=== PATIENT | female | born 1990 | race American Indian/Alaskan Native ===

== ENCOUNTER 2019-08-03 19:38 | Emergency (ER) | payer SELFPAY ==
--- NOTE | 2019-08-03 20:39 | Event Note ---
ED Screening Note Date of service: 08/03/19 Time: 20:37 ED Screening Note: Pt complains of hematemesis and epigastric pain x 3 am states started after taking cornelius's cold medication states pain is burning vomiting BRB denies hx of GI bleed This initial assessment/diagnostic orders/clinical plan/treatment(s) is/are subject to change based on patients health status, clinical progression and re- assessment by fellow clinical providers in the ED. Further treatment and workup at subsequent clinical providers discretion. Patient/guardian urged not to elope from the ED as their condition may be serious if not clinically assessed and managed. Initial orders include: CT labs
[2019-08-03] MEDS ORDERED: PANTOPRAZOLE 40 MG INJ IV ONE (20:40)
[2019-08-03 21:36] LABS: Bilirubin,Urine NEG (Negative); Blood,Urine SM (Negative); Color,Urine Yellow (Yellow); Mucus,Urine 3+ /HPF; Urobilinogen,Urine < 2.0 mg/dL (<2.0)
[2019-08-03 21:43] LABS: Basophils % (Auto) 0.5 % (0.0-1.8); Hematocrit 41.5 % (30.3-42.9); Lymphocytes # (Auto) 0.7 K/mm3 (1.2-5.4); Mean Corpuscular HGB Conc 34 % (30-34); Mean Corpuscular Volume 97 fl (79-97); Monocytes # (Auto) 0.5 K/mm3 (0.0-0.8); Monocytes % (Auto) 10.5 % (0.0-7.3); Platelet Count 244 K/mm3 (140-440); Red Blood Count 4.26 M/mm3 (3.65-5.03); Red Cell Distribution Width 15.8 % (13.2-15.2)
[2019-08-03 21:50] LABS: INR 1.02 (0.87-1.13)
[2019-08-03 21:51] LABS: Partial Thromboplastin Time 27.5 Sec. (24.2-36.6)
[2019-08-03 22:06] LABS: Alanine Aminotransferase 18 units/L (7-56); Albumin 4.2 g/dL (3.9-5); BUN/Creatinine Ratio 10; Blood Urea Nitrogen 6 mg/dL (7-17); Calcium 9.1 mg/dL (8.4-10.2); Hemolysis Index 12
[2019-08-03] MEDS ORDERED: ONDANSETRON 4 MG/2 ML INJ IV ONE (23:34)
[2019-08-03] MEDS ORDERED: D5W/0.9% NACL 1,000 ML IV SCH (23:45)
[2019-08-03] MEDS ORDERED: MORPHINE 4 MG/1 ML INJ IV ONE (23:45)
--- NOTE | 2019-08-03 23:49 | Emergency Department Report ---
ED N/V/D HPI - General Chief complaint: Abdominal Pain Stated complaint: ABD PAIN/EMESIS Time Seen by Provider: 08/03/19 20:34 Source: patient, EMS Mode of arrival: Ambulatory Limitations: No Limitations - History of Present Illness Initial comments: 29 year old female the past medical history liposuction and eating disorder/bulimia presents to the hospital complaints of hematemesis and burning abdominal pain since 3 AM yesterday. Patient has had a gross bright will blood vomiting episodes since 3 AM followed by multiple coffee ground emesis episodes. She complains midline burning epigastric pain radiating midline down to the suprapubic area rated moderate to severe in intensity. Pain worsened palpation and movement. Patient also having intermittent cramping abdominal pain. Patient received Protonix IV in triage reports improvement in this pain. Patient feels dry requesting by mouth fluids. She states she feels her bulimia has improved and she is down to vomiting once every other day and when she feels like she is fat. She has never received any psychiatric treatment for bulimia. - Related Data Previous Rx's Medication Instructions Recorded Last Taken Type Cyclobenzaprine [Flexeril] 10 mg PO QHS PRN #20 tablet 09/12/18 Unknown Rx Ibuprofen [Motrin] 800 mg PO Q8HR #30 tablet 09/12/18 Unknown Rx Ondansetron [Zofran Odt] 4 mg PO Q8HR PRN #20 tab.rapdis 08/04/19 Unknown Rx Pantoprazole [Protonix] 40 mg PO QDAY #30 tablet 08/04/19 Unknown Rx traMADoL [Ultram 50 MG tab] 50 mg PO Q6HR PRN #15 tablet 08/04/19 Unknown Rx Allergies Allergy/AdvReac Type Severity Reaction Status Date / Time No Known Allergies Allergy Verified 08/03/19 23:36 ED Review of Systems ROS: Stated complaint: ABD PAIN/EMESIS Other details as noted in HPI Comment: All other systems reviewed and negative ED Past Medical Hx - Past Medical History Previous Medical History?: No Additional medical history: Eating disorder/ bulimia - Surgical History Past Surgical History?: Yes Additional Surgical History: lipsuction - Social History Smoking Status: Never Smoker Substance Use Type: None - Medications Home Medications: Home Medications Medication Instructions Recorded Confirmed Last Taken Type Cyclobenzaprine [Flexeril] 10 mg PO QHS PRN #20 tablet 09/12/18 Unknown Rx Ibuprofen [Motrin] 800 mg PO Q8HR #30 tablet 09/12/18 Unknown Rx Ondansetron [Zofran Odt] 4 mg PO Q8HR PRN #20 tab.rapdis 08/04/19 Unknown Rx Pantoprazole [Protonix] 40 mg PO QDAY #30 tablet 08/04/19 Unknown Rx traMADoL [Ultram 50 MG tab] 50 mg PO Q6HR PRN #15 tablet 08/04/19 Unknown Rx ED Physical Exam - General Limitations: No Limitations - Other Other exam information: General: No acute distress Head: Atraumatic Eyes: normal appearance ENT:dry mucous membranes Neck: Normal appearance, no midline tenderness Chest: Clear to auscultation bilaterally CV: Regular rate and rhythm Abdomen: Soft, normal bowel sounds, epigastric and right upper quadrant tenderness, nondistended, no rebound or guarding Rectal: no gross stool on rectal exam, guaic neg, no gross blood Back: Normal inspection Extremity: Normal inspection, full range of motion Neuro: Alert O x 3, no facial asymmetry, speech clear, no gross motor sensory deficit Psych: Appropriate behavior Skin: No rash ED Course Vital Signs 08/03/19 08/03/19 08/04/19 19:50 20:34 00:06 Temperature 99.1 F 99.1 F Pulse Rate 79 81 Respiratory 18 18 Rate Blood Pressure 108/72 108/72 O2 Sat by Pulse 96 95 99 Oximetry 08/04/19 08/04/19 08/04/19 00:15 00:30 00:45 Temperature Pulse Rate Respiratory Rate Blood Pressure 92/52 102/45 105/58 O2 Sat by Pulse 98 99 99 Oximetry - Consultations Consultation #1: 08/04/19 00:52 case d/w Dr guaman, gi, f/u advised ED Medical Decision Making - Lab Data Result diagrams: 08/03/19 21:19 08/03/19 21:19 Lab Results 08/03/19 08/03/19 08/03/19 Range/Units 21:16 21:19 21:19 WBC 4.6 (4.5-11.0) K/mm3 RBC 4.26 (3.65-5.03) M/mm3 Hgb 14.0 (10.1-14.3) gm/dl Hct 41.5 (30.3-42.9) % MCV 97 (79-97) fl MCH 33 H (28-32) pg MCHC 34 (30-34) % RDW 15.8 H (13.2-15.2) % Plt Count 244 (140-440) K/mm3 Lymph % (Auto) 15.0 (13.4-35.0) % [place] % (Auto) 10.5 H (0.0-7.3) % Eos % (Auto) 0.0 (0.0-4.3) % Baso % (Auto) 0.5 (0.0-1.8) % Lymph # 0.7 L (1.2-5.4) K/mm3 [place] # 0.5 (0.0-0.8) K/mm3 Eos # 0.0 (0.0-0.4) K/mm3 Baso # 0.0 (0.0-0.1) K/mm3 Seg Neutrophils % 74.0 H (40.0-70.0) % Seg Neutrophils # 3.4 (1.8-7.7) K/mm3 PT (12.2-14.9) Sec. INR (0.87-1.13) APTT (24.2-36.6) Sec. Sodium 141 (137-145) mmol/L Potassium 3.4 L (3.6-5.0) mmol/L Chloride 105.0 (98-107) mmol/L Carbon Dioxide 20 L (22-30) mmol/L Anion Gap 19 mmol/L BUN 6 L (7-17) mg/dL Creatinine 0.6 L (0.7-1.2) mg/dL Estimated GFR > 60 ml/min BUN/Creatinine Ratio 10 % Glucose 101 H (65-100) mg/dL Calcium 9.1 (8.4-10.2) mg/dL Total Bilirubin 0.20 (0.1-1.2) mg/dL AST 25 (5-40) units/L ALT 18 (7-56) units/L Alkaline Phosphatase 58 (35-129) units/L Total Protein 7.8 (6.3-8.2) g/dL Albumin 4.2 (3.9-5) g/dL Albumin/Globulin Ratio 1.2 % Lipase 32 (13-60) units/L HCG, Quant (0-4) mIU/mL Urine Color Yellow (Yellow) Urine Turbidity Slightly-cloudy (Clear) Urine pH 6.0 (5.0-7.0) Ur Specific [place] 1.030 (1.003-1.030) Urine Protein 100 mg/dl (Negative) mg/dL Urine Glucose (UA) Neg (Negative) mg/dL Urine Ketones 80 (Negative) mg/dL Urine Blood Sm (Negative) Urine Nitrite Neg (Negative) Urine Bilirubin Neg (Negative) Urine Urobilinogen < 2.0 (<2.0) mg/dL Ur Leukocyte Esterase Neg (Negative) Urine WBC (Auto) 1.0 (0.0-6.0) /HPF Urine RBC (Auto) 18.0 (0.0-6.0) /HPF U Epithel Cells (Auto) 14.0 H (0-13.0) /HPF Urine Mucus 3+ /HPF 08/03/19 08/03/19 Range/Units 21:19 21:19 WBC (4.5-11.0) K/mm3 RBC (3.65-5.03) M/mm3 Hgb (10.1-14.3) gm/dl Hct (30.3-42.9) % MCV (79-97) fl MCH (28-32) pg MCHC (30-34) % RDW (13.2-15.2) % Plt Count (140-440) K/mm3 Lymph % (Auto) (13.4-35.0) % [place] % (Auto) (0.0-7.3) % Eos % (Auto) (0.0-4.3) % Baso % (Auto) (0.0-1.8) % Lymph # (1.2-5.4) K/mm3 [place] # (0.0-0.8) K/mm3 Eos # (0.0-0.4) K/mm3 Baso # (0.0-0.1) K/mm3 Seg Neutrophils % (40.0-70.0) % Seg Neutrophils # (1.8-7.7) K/mm3 PT 13.5 (12.2-14.9) Sec. INR 1.02 (0.87-1.13) APTT 27.5 (24.2-36.6) Sec. Sodium (137-145) mmol/L Potassium (3.6-5.0) mmol/L Chloride (98-107) mmol/L Carbon Dioxide (22-30) mmol/L Anion Gap mmol/L BUN (7-17) mg/dL Creatinine (0.7-1.2) mg/dL Estimated GFR ml/min BUN/Creatinine Ratio % Glucose (65-100) mg/dL Calcium (8.4-10.2) mg/dL Total Bilirubin (0.1-1.2) mg/dL AST (5-40) units/L ALT (7-56) units/L Alkaline Phosphatase (35-129) units/L Total Protein (6.3-8.2) g/dL Albumin (3.9-5) g/dL Albumin/Globulin Ratio % Lipase (13-60) units/L HCG, Quant < 2 (0-4) mIU/mL Urine Color (Yellow) Urine Turbidity (Clear) Urine pH (5.0-7.0) Ur Specific [place] (1.003-1.030) Urine Protein (Negative) mg/dL Urine Glucose (UA) (Negative) mg/dL Urine Ketones (Negative) mg/dL Urine Blood (Negative) Urine Nitrite (Negative) Urine Bilirubin (Negative) Urine Urobilinogen (<2.0) mg/dL Ur Leukocyte Esterase (Negative) Urine WBC (Auto) (0.0-6.0) /HPF Urine RBC (Auto) (0.0-6.0) /HPF U Epithel Cells (Auto) (0-13.0) /HPF Urine Mucus /HPF - Radiology Data Radiology results: report reviewed CT ABDOMEN AND PELVIS WITH IV CONTRAST INDICATION: Generalized abdominal pain. Epigastric pain. TECHNIQUE: Following the administration of intravenous contrast, multiple axial CT images of the abdomen and pelvis were acquired. Sagittal and coronal reformats were obtained. All CT performed at this facility utilize dose reduction techniques including automated exposure control, iterative reconstruction and weight based dosing when appropriate to reduce patient radiation dose to as low as reasonably achievable. COMPARISON: None FINDINGS: Limited imaging of the bilateral lung bases demonstrates no evidence of acute ab normality. Abdomen: The liver, gallbladder, spleen, pancreas, bilateral adrenal glands and bilateral kidneys show no evidence of acute abnormality. There is questioned possible mild wall thickening of the proximal small bowel. There is no evidence of bowel obstruction. No free air is identified. Pelvis: Evaluation through the pelvis is somewhat limited secondary to the paucity of abdominal fat. The urinary bladder appears normal. There is a trace amount of endometrial fluid. There is a left adnexal cyst measuring 4.8 x 5.8 cm. There is a trace amount of free pelvic fluid. Bones and Soft Tissues: Evaluation of bony structures demonstrates no evidence of destructive bony lesion. Evaluation of soft tissue structures demonstrates innumerable well- circumscribed low-density lesions throughout the gluteal soft tissues. This is nonspecific but may be secondary to previous infection or medication injection. IMPRESSION: 1. Possible mild wall thickening of the proximal small bowel. In a patient with epigastric pain this could suggest enteritis. Please correlate with patient's clinical circu mstances. 2. Left adnexal cyst. - Medical Decision Making pt feeling better, tolerating po no signs of active bleeding h/h and vitals normal case d/w GI f/u advised - Differential Diagnosis Mallery Gatica, GERD, gastroenteritis, pancreatitis, biliary colic Critical Care Time: No Critical care attestation.: If time is entered above; I have spent that time in minutes in the direct care of this critically ill patient, excluding procedure time. ED Disposition Clinical Impression: Hematemesis, Bulimia, GERD (gastroesophageal reflux disease) Disposition: - TO HOME OR SELFCARE Is pt being admited?: No Does the pt Need Aspirin: No Condition: Stable Instructions: Acute Nausea and Vomiting (ED), Gastrointestinal Bleeding (ED) Additional Instructions: Take the medication as prescribed. Follow-up with your doctor or doctor/clinic provided. Return if symptoms worsen as indicated by your discharge instructions. Prescriptions: Pantoprazole [Protonix] 40 mg PO QDAY #30 tablet traMADoL [Ultram 50 MG tab] 50 mg PO Q6HR PRN #15 tablet PRN Reason: Pain Ondansetron [Zofran Odt] 4 mg PO Q8HR PRN #20 tab.rapdis PRN Reason: Nausea And Vomiting Referrals: FLOR GRAYSON MD [Staff Physician] - 3-5 Days (primary care doctor ) ALEISHA GUAMAN MD [Staff Physician] - 3-5 Days (Gi doctor ) Time of Disposition: 02:50
--- NOTE | 2019-08-04 00:14 | Cat Scan Report ---
CT ABDOMEN AND PELVIS WITH IV CONTRAST INDICATION: Generalized abdominal pain. Epigastric pain. TECHNIQUE: Following the administration of intravenous contrast, multiple axial CT images of the abdo men and pelvis were acquired. Sagittal and coronal reformats were obtained. All CT performed at this facility utilize dose reduction techniques including automated exposure control, iterative reconstru ction and weight based dosing when appropriate to reduce patient radiation dose to as low as reasonab ly achievable. COMPARISON: None FINDINGS: Limited imaging of the bilateral lung bases demonstrates no evidence of acute abnormality. Abdomen: The liver, gallbladder, spleen, pancreas, bilateral adrenal glands and bilateral kidneys izzy w no evidence of acute abnormality. There is questioned possible mild wall thickening of the proximal small bowel. There is no evidence of bowel obstruction. No free air is identified. Pelvis: Evaluation through the pelvis is somewhat limited secondary to the paucity of abdominal fat. The urinary bladder appears normal. There is a trace amount of endometrial fluid. There is a left adn exal cyst measuring 4.8 x 5.8 cm. There is a trace amount of free pelvic fluid. Bones and Soft Tissues: Evaluation of bony structures demonstrates no evidence of destructive bony le soni. Evaluation of soft tissue structures demonstrates innumerable well-circumscribed low-density le sions throughout the gluteal soft tissues. This is nonspecific but may be secondary to previous infec tion or medication injection. IMPRESSION: 1. Possible mild wall thickening of the proximal small bowel. In a patient with epigastric pain this could suggest enteritis. Please correlate with patient's clinical circumstances. 2. Left adnexal cyst. Signer Name: Christine Robertson MD Signed: 08/04/2019 12:09 AM Workstation Name: [id number]
[2019-08-04] MEDS ORDERED: POTASSIUM CHLORIDE ER 20 MEQ TAB PO ONE (00:52)
[2019-08-04 00:56] VITALS: BP 105/58
== END 2019-08-04 04:38 | disposition home or self-care (01) ==
LOC: ED 19:38
DX: K21.9 Gastro-esophageal reflux disease without esophagitis (principal); F50.2 Bulimia nervosa; K92.0 Hematemesis; Z98.890 Other specified postprocedural states; Z79.899 Other long term (current) drug therapy
CPT/HCPCS: 36415; 74177; 80053; 81001; 82271; 83690; 84702; 85025; 85610; 85730; 96361; 96374; 96375; 99284; C9113; J2270; J2405; J7042; Q9967